=== PATIENT | male | born 1975 | race Caucasian/White ===

== ENCOUNTER 2020-06-14 12:55 | Outpatient (REF) | payer MEDICARE, MEDICAID, SELFPAY | END 2020-06-14 12:56 | disposition home or self-care (01) | LOC: HO.HMGCLDS 12:55 | PROVIDERS: PCP Internal Medicine; Visit Provider Internal Medicine | DX: Z20.828 Contact with and (suspected) exposure to other viral communicable diseases (principal) | CPT/HCPCS: U0003 ==

== ENCOUNTER 2020-06-23 16:39 | Outpatient (REF) | payer MEDICARE, MEDICAID, SELFPAY | END 2020-06-23 16:40 | disposition home or self-care (01) | LOC: HO.LNP 16:39 | PROVIDERS: Visit Provider Nurse Practitioner Family | DX: Z20.828 Contact with and (suspected) exposure to other viral communicable diseases (principal); R52 Pain, unspecified | CPT/HCPCS: U0003 ==

== ENCOUNTER 2020-09-29 09:25 | Outpatient (REF) | payer MEDICARE, MEDICAID, SELFPAY ==
--- NOTE | ~2020-09-29 | US_ITS ---
EXAMINATION: US RETROPERITONEAL LIMITED (RENAL ONLY) CLINICAL INFORMATION: Nephrolithiasis. COMPARISON: Renal ultrasound 03/30/2020. KUB 03/30/2020 and 03/22/2020. CT abdomen and pelvis 03/24/2020. Ultrasound abdomen complete 12/30/2013. TECHNIQUE: Real-time imaging of the kidneys. FINDINGS: RIGHT KIDNEY: 11.7 x 5.8 x 5.6 cm (SAG x AP x TRV). The kidney is normal in size, contour, and echogenicity. Renal cortical thickness is normal. No calculi or focal parenchymal lesions. No hydronephrosis. LEFT KIDNEY: 10.7 x 6.4 x 5.2 cm (SAG x AP x TRV). The kidney is normal in size, contour, and echogenicity. Renal cortical thickness is normal. No calculi or focal parenchymal lesions. No hydronephrosis. OTHER: The visualized right hepatic lobe demonstrates diffuse increased echotexture. US/US renal BI IMPRESSION: 1. No significant renal abnormality. 2. Possible hepatic steatosis.
== END 2020-09-29 09:26 | disposition home or self-care (01) ==
LOC: HO.US 09:25
PROVIDERS: Visit Provider Urology
DX: N20.0 Calculus of kidney (principal)
CPT/HCPCS: 76775

== ENCOUNTER → 2020-10-06 10:44 | Outpatient (BNVA) | payer MEDICARE, MEDICAID, SELFPAY | PROVIDERS: PCP Internal Medicine; Visit Provider Urology | DX: Z13.89 Encounter for screening for other disorder (principal) | CPT/HCPCS: Q3014 ==

== ENCOUNTER 2020-12-26 03:39 | Emergency (ER) | payer MEDICARE, MEDICAID, SELFPAY ==
--- NOTE | ~2020-12-26 | CT_ITS ---
EXAMINATION: CT ABDOMEN AND PELVIS WITHOUT CONTRAST CLINICAL INFORMATION: Right flank pain, history of kidney stones COMPARISON: 03/24/2020 TECHNIQUE: Multidetector volumetric imaging was performed from the superior aspect of the liver through the pubic symphysis. Sagittal and coronal reformatted images were obtained on the technologist's workstation. This CT examination was performed using dose optimization techniques as appropriate, variously including the following: *Automated exposure control *Adjustment of mA and/or kV according to patient size (this includes techniques or standardized protocols for targeted exams where dose is matched to indication/reason for exam; i.e. extremities or head) *Use of iterative reconstruction technique DLP: 94 9 mGy-cm FINDINGS: LUNG BASES: The visualized lung bases are unremarkable. LIVER, GALLBLADDER, AND BILIARY TREE: The liver demonstrates hypoattenuation consistent with steatosis. No biliary ductal dilatation is present. The gallbladder is unremarkable with no evidence of radiopaque gallstones, gallbladder wall thickening, or obvious pericholecystic inflammatory changes. PANCREAS: Unremarkable. SPLEEN: Unremarkable. ADRENAL GLANDS: Unremarkable. KIDNEYS AND URETERS: The kidneys are normal in size, shape, and attenuation. A few punctate right renal calculi are noted. No hydronephrosis, hydroureter, or obstructing calculi seen. BLADDER: Unremarkable. GASTROINTESTINAL TRACT: The small and large bowel are unremarkable. No free fluid or free air is seen. ABDOMINAL WALL: No significant hernia is appreciated. LYMPH NODES: Normal. VASCULAR: Unremarkable. PELVIC VISCERA: Unremarkable. OSSEOUS STRUCTURES: Disc spacers are present at L4-L5 and L5-S1. CT/CT abdomen pelvis wo con IMPRESSION: No acute findings identified in the abdomen/pelvis. Few punctate right renal calculi without hydronephrosis.
[2020-12-26 04:15] VITALS: BP 132/94; PULSE 85; RESP 20; TEMP 36.6; O2SAT 99; BMI 32.1
[2020-12-26 04:46] LABS: Basophils Percent Auto 0.3 % (0-2); Eosinophils Absolute Auto 0.2 X10*3/uL (0.0-0.4); Eosinophils Percent Auto 1.9 % (0-4); Hematocrit 44.2 % (42-52); Hemoglobin 14.7 g/dl (14.0-18.0); Imm Gran Abs Auto 0.03 X10*3/uL (0.00-0.03); Imm Gran Pct Auto 0.3 % (0.0-0.4); Lymphocytes Absolute Auto 4.2 X10*3/uL (1.2-4.9); Lymphocytes Percent Auto 40.4 % (20-40); MANUAL DIFF FLAG NO; Mean Corpuscular HGB Conc 33.3 g/dl (31.0-36.0); Mean Corpuscular Hemoglobin 28.7 pg (27.0-33.0); Mean Corpuscular Volume 86.2 fL (80-98); Mean Platelet Volume 9.6 fL (9.4-12.4); Monocytes Absolute Auto 0.7 X10*3/uL (0.1-1.2); Monocytes Percent Auto 6.4 % (2-11); Neutrophils Absolute Auto 5.3 X10*3/uL (2.0-8.3); Neutrophils Percent Auto 50.7 % (45-73); Platelet Count 289 X10*3/uL (160-400); Red Blood Count 5.13 X10*6/uL (4.60-5.80); Red Cell Distribution Width 12.8 % (11.0-16.0); White Blood Count 10.4 X10*3/uL (4.8-10.8)
[2020-12-26 04:50] LABS: Glucose Urine UA NEG (NEG); Leukocyte Esterase Urine NEG (NEG); Nitrite Urine NEG (NEG); Specific Gravity - Urine >= 1.030 (1.005-1.025); Urine Blood NEG (NEG); Urine Ketones NEG (NEG); Urine Protein NEG (NEG-TRACE)
[2020-12-26 04:51] LABS: Appearance Urine CLEAR; Color Urine YELLOW
--- NOTE | 2020-12-26 04:52 | ED_ITS ---
HPI - Abdominal Pain General Chief Complaint: Abdominal Pain Stated Complaint: right side abdominal pain Time Seen by Provider: 12/26/20 04:38 Source: patient Mode of arrival: ambulatory Limitations: no limitations History of Present Illness HPI narrative: Patient comes to emergency room complaining of right flank pain. Patient states he woke up in the morning complaining of sharp pain in the right flank traveling towards the right lower quadrant. Patient states earlier this year he had left-sided kidney stones and the pain feels similar. Patient complaining of nausea, no vomiting or diarrhea. MD elicited complaint: flank pain Related Data Home Medications Medication Instructions Recorded Confirmed ibuprofen 600 mg tablet mg PO 06/23/20 ketorolac 10 mg tablet 10 mg PO Q6H PRN 06/23/20 methocarbamol 500 mg tablet 500 mg PO TID 06/23/20 mupirocin 2 % topical ointment TOPICAL BID 06/23/20 omeprazole 40 mg capsule,delayed 40 mg PO DAILY 06/23/20 release oxycodone-acetaminophen 5 mg-325 1 tab PO Q6H PRN 06/23/20 mg tablet potassium citrate 10 mEq (1,080 20 meq PO BID 06/23/20 mg) tablet,extended release simvastatin 20 mg tablet 20 mg PO BEDTIME 06/23/20 tamsulosin 0.4 mg capsule 0.4 mg PO DAILY 06/23/20 tramadol 50 mg tablet 50 mg PO Q6H PRN 06/23/20 Previous Rx's Medication Instructions Recorded ketorolac 10 mg PO TID PRN 5 Days #7 tab 12/26/20 Allergies Allergy/AdvReac Type Severity Reaction Status Date / Time seafood Allergy Unknown Verified 12/26/20 04:21 From VICODIN Allergy Unknown RASH Uncoded 04/28/20 16:27 Review of Systems Review of Systems Constitutional : No Weight loss, No Fever, No Chills, No Night Sweats, No Fatigue, No Malaise ENT/Mouth : No Hearing loss, No Ear Pain, No Nasal Congestion, No Sinus Pain, No Hoarseness, No sore throat, No Rhinorrhea, No Swallowing Difficulty Eyes: No Eye Pain, No Swelling, No Redness, No Foreign Body, No Discharge, No Vision Changes Cardiovascular : No Chest Pain, No SOB, No Dyspnea on Exertion, No Orthopnea, No Edema, No Palpitations Respiratory : No Cough, No Sputum, No Wheezing, No Smoke Exposure, No Dyspnea Gastrointestinal : No Nausea, No Vomiting, No Diarrhea, No Constipation, right- sided flank pain radiating towards the right lower quadrant, No Hematochezia, No Melena Genitourinary : no irregular bleeding, No Dysuria, No Urinary Frequency, No Hematuria, No Urinary Incontinence, No Urgency, No Flank Pain, No Urinary Flow Changes, No Hesitancy Musculoskeletal : No joint pain, No Myalgias, No Joint Swelling Skin : No Skin Lesions, No rash Neuro : No Weakness, No Numbness, No Paresthesias, No Loss of Consciousness, No Dizziness, No Headache Psych : No Anxiety/Panic, No Depression, No SI/HI/AH/VH, No Social Issues, Heme/Lymph: No Bruising, No Bleeding,No Lymphadenopathy Endocrine : No Polyuria, No Polydipsia, No Temperature Intolerance Physical Exam Vital Signs: Vital Signs: Last Vital Signs Temp 97.8 F 12/26/20 04:15 Pulse 76 12/26/20 06:49 Resp 16 12/26/20 06:49 BP 116/77 12/26/20 06:49 Pulse Ox 97 12/26/20 06:49 Body Mass Index 32.1 Appearance: Alert. Oriented X3. No acute distress. Eyes: Pupils equal, round and reactive to light. ENT: Pharynx normal. Neck: Normal inspection. Neck supple. No lymph nodes noted. No crepitus CVS: Normal heart rate and rhythm. Pulses normal. Normal S1 and S2 Respiratory: No respiratory distress. Breath sounds normal. No Wheezing. No rales Abdomen: Soft and nontender. No rigidity. No distention. Back: Positive CVA tenderness in the right side Skin: Skin warm and dry. Normal skin color. Normal skin turgor. Extremities: No lower extremity edema. No lower extremity edema. No Lacerations. No Rash Neuro: Oriented X 3. No motor deficit. No sensory deficit. Moving all extermities. No slurred speech. Course Course Course Narrative: I discussed with the patient that he does not have kidney stones, CT scan unremarkable. Patient instructed to follow-up with his primary care physician. Patient likely having musculoskeletal pain. MDM - Abdominal Pain Lab Data Result diagrams: 12/26/20 04:40 12/26/20 04:40 Labs: Lab Results 12/26/20 12/26/20 12/26/20 Range/Units 04:40 04:40 04:40 WBC 10.4 (4.8-10.8) X10*3/uL RBC 5.13 (4.60-5.80) X10*6/uL Hgb 14.7 (14.0-18.0) g/dl Hct 44.2 (42-52) % MCV 86.2 (80-98) fL MCH 28.7 (27.0-33.0) pg MCHC 33.3 (31.0-36.0) g/dl RDW 12.8 (11.0-16.0) % Plt Count 289 (160-400) X10*3/uL MPV 9.6 (9.4-12.4) fL Immature Gran % (Auto) 0.3 (0.0-0.4) % Neut % (Auto) 50.7 (45-73) % Lymph % (Auto) 40.4 H (20-40) % Barber % (Auto) 6.4 (2-11) % Eos % (Auto) 1.9 (0-4) % Baso % (Auto) 0.3 (0-2) % Lymph # (Auto) 4.2 (1.2-4.9) X10*3/uL Barber # (Auto) 0.7 (0.1-1.2) X10*3/uL Eos # (Auto) 0.2 (0.0-0.4) X10*3/uL Baso # (Auto) 0.0 (0.0-0.2) X10*3/uL Abs Immat Gran (auto) 0.03 (0.00-0.03) X10*3/uL Absolute Neuts (auto) 5.3 (2.0-8.3) X10*3/uL Absolute Nucleated RBC 0.000 (0.0-0.012) X10*3/uL Nucleated RBC % (auto) 0.0 (0.0-0.2) /100WBC Hold Blue Top SEE NOTE Sodium 140 (135-145) mmol/L Potassium 4.4 (3.3-5.1) mmol/L Chloride 105 (96-108) mmol/L Carbon Dioxide 24 (22-29) mmol/L Anion Gap 15 (12-20) BUN 19 H (9-16) mg/dL Creatinine 1.07 (0.5-1.4) mg/dL Estim Creat Clear Calc 112.6 Estimated GFR > 60 Random Glucose 129 H (60-115) mg/dL Calcium 9.4 (8.4-10.2) mg/dL Total Bilirubin 0.4 (0.0-1.0) mg/dL AST 30 (5-37) U/L ALT 55 H (0-40) U/L Alkaline Phosphatase 83 (39-117) U/L Total Protein 7.4 (6.5-8.0) g/dL Albumin 4.7 (3.5-5.0) g/dL Urine Color Urine Appearance Urine pH (5.0-8.0) Ur Specific Driscoll (1.005-1.025) Urine Protein (NEG-TRACE) MG/DL Urine Glucose (UA) (NEG) MG/DL Urine Ketones (NEG) MG/DL Urine Blood (NEG) Urine Nitrite (NEG) Ur Leukocyte Esterase (NEG) 12/26/20 Range/Units 04:40 WBC (4.8-10.8) X10*3/uL RBC (4.60-5.80) X10*6/uL Hgb (14.0-18.0) g/dl Hct (42-52) % MCV (80-98) fL MCH (27.0-33.0) pg MCHC (31.0-36.0) g/dl RDW (11.0-16.0) % Plt Count (160-400) X10*3/uL MPV (9.4-12.4) fL Immature Gran % (Auto) (0.0-0.4) % Neut % (Auto) (45-73) % Lymph % (Auto) (20-40) % Barber % (Auto) (2-11) % Eos % (Auto) (0-4) % Baso % (Auto) (0-2) % Lymph # (Auto) (1.2-4.9) X10*3/uL Barber # (Auto) (0.1-1.2) X10*3/uL Eos # (Auto) (0.0-0.4) X10*3/uL Baso # (Auto) (0.0-0.2) X10*3/uL Abs Immat Gran (auto) (0.00-0.03) X10*3/uL Absolute Neuts (auto) (2.0-8.3) X10*3/uL Absolute Nucleated RBC (0.0-0.012) X10*3/uL Nucleated RBC % (auto) (0.0-0.2) /100WBC Hold Blue Top Sodium (135-145) mmol/L Potassium (3.3-5.1) mmol/L Chloride (96-108) mmol/L Carbon Dioxide (22-29) mmol/L Anion Gap (12-20) BUN (9-16) mg/dL Creatinine (0.5-1.4) mg/dL Estim Creat Clear Calc Estimated GFR Random Glucose (60-115) mg/dL Calcium (8.4-10.2) mg/dL Total Bilirubin (0.0-1.0) mg/dL AST (5-37) U/L ALT (0-40) U/L Alkaline Phosphatase (39-117) U/L Total Protein (6.5-8.0) g/dL Albumin (3.5-5.0) g/dL Urine Color YELLOW Urine Appearance CLEAR Urine pH 6.0 (5.0-8.0) Ur Specific Driscoll >= 1.030 H (1.005-1.025) Urine Protein NEG (NEG-TRACE) MG/DL Urine Glucose (UA) NEG (NEG) MG/DL Urine Ketones NEG (NEG) MG/DL Urine Blood NEG (NEG) Urine Nitrite NEG (NEG) Ur Leukocyte Esterase NEG (NEG) Imaging Data CT scan - abdomen: Radiologist's impression: FINDINGS: LUNG BASES: The visualized lung bases are unremarkable. LIVER, GALLBLADDER, AND BILIARY TREE: The liver demonstrates hypoattenuation consistent with steatosis. No biliary ductal dilatation is present. The gallbladder is unremarkable with no evidence of radiopaque gallstones, gallbladder wall thickening, or obvious pericholecystic inflammatory changes. PANCREAS: Unremarkable. SPLEEN: Unremarkable. ADRENAL GLANDS: Unremarkable. KIDNEYS AND URETERS: The kidneys are normal in size, shape, and attenuation. A few punctate right renal calculi are noted. No hydronephrosis, hydroureter, or obstructing calculi seen. BLADDER: Unremarkable. GASTROINTESTINAL TRACT: The small and large bowel are unremarkable. No free fluid or free air is seen. ABDOMINAL WALL: No significant hernia is appreciated. LYMPH NODES: Normal. VASCULAR: Unremarkable. PELVIC VISCERA: Unremarkable. OSSEOUS STRUCTURES: Disc spacers are present at L4-L5 and L5-S1. CT/CT abdomen pelvis wo con IMPRESSION: No acute findings identified in the abdomen/pelvis. Few punctate right renal calculi without hydronephrosis. Discharge Plan Discharge Clinical Impression: Acute flank pain Patient Disposition: Home, Self-Care Instructions: Flank Pain (ED) Additional Instructions: Please follow-up with your primary care physician tomorrow. If you have any worsening or new symptoms, please return to the emergency room or call 911 Prescriptions: New ketorolac 10 mg tablet 10 mg PO TID PRN (Reason: pain) 5 Days Qty: 7 RF: 0 No Action mupirocin 2 % ointment topical BID RF: 0 simvastatin 20 mg tablet 20 mg PO BEDTIME RF: 0 ibuprofen 600 mg tablet PO RF: 0 omeprazole 40 mg capsule,delayed release(DR/EC) 40 mg PO DAILY RF: 0 methocarbamol 500 mg tablet 500 mg PO TID RF: 0 potassium citrate 10 mEq (1,080 mg) tablet extended release 20 meq PO BID RF: 0 ketorolac 10 mg tablet 10 mg PO Q6H PRN (Reason: pain) RF: 0 tramadol 50 mg tablet 50 mg PO Q6H PRNRF: 0 tamsulosin 0.4 mg capsule 0.4 mg PO DAILY RF: 0 oxycodone-acetaminophen 5-325 mg tablet 1 tab PO Q6H PRN (Reason: pain) RF: 0 PMFSH Past Medical History Medical History Chronic lower back pain Kidney calculi Surgical History Hx of appendectomy Social History Social History Advance Directives: No Advance Directives Information Provided: No
[2020-12-26] MEDS: Ketorolac Tromethamine 30 MG/ML VIAL IVPUSH (04:59)
[2020-12-26] MEDS: ondansetron HCL 4 MG/2 ML VIAL IVPUSH (04:59)
[2020-12-26 05:09] LABS: Alanine Aminotransferase 55 U/L (0-40); Albumin Level 4.7 g/dL (3.5-5.0); Alkaline Phosphatase 83 U/L (39-117); Anion Gap 15 (12-20); Aspartate Amino Transferase 30 U/L (5-37); Bilirubin Total 0.4 mg/dL (0.0-1.0); Blood Urea Nitrogen 19 mg/dL (9-16); Calcium 9.4 mg/dL (8.4-10.2); Carbon Dioxide 24 mmol/L (22-29); Chloride 105 mmol/L (96-108); Creatinine Clr Calc Pharmacy 112.6; Estimated Glomerular Filt Rate > 60; Glucose Random 129 mg/dL (60-115); Potassium 4.4 mmol/L (3.3-5.1); Sodium 140 mmol/L (135-145); Total Protein 7.4 g/dL (6.5-8.0)
[2020-12-26 06:49] VITALS: BP 116/77; PULSE 76; RESP 16; O2SAT 97
--- NOTE | 2020-12-26 06:49 | PC.NURSE ---
PT REPORTS PAIN HAS IMPROVED, NOW A 4/10. PT STILL FEELING NAUSEOUS.
[2020-12-26 07:22] VITALS: BP 101/62; PULSE 74; RESP 18; O2SAT 98
== END 2020-12-26 07:31 | disposition home or self-care (01) ==
PROVIDERS: Emergency Provider Emergency Medicine; PCP Internal Medicine
DX: R10.9 Unspecified abdominal pain (principal); R11.0 Nausea; N20.0 Calculus of kidney; Z87.442 Personal history of urinary calculi
CPT/HCPCS: 36415; 74176; 80053; 81003; 85025; 96374; 96375; 99284; J1885; J2405

== ENCOUNTER 2021-06-20 13:06 | Emergency (ER) | payer MEDICARE, MEDICAID, SELFPAY | END 2021-06-20 15:13 | disposition left against medical advice (07) | PROVIDERS: Emergency Provider Emergency Medicine; PCP Internal Medicine | DX: R10.9 Unspecified abdominal pain (principal); R31.9 Hematuria, unspecified ==

== ENCOUNTER 2021-10-30 13:53 | Outpatient (REF) | payer MEDICARE, MEDICAID, SELFPAY ==
--- NOTE | ~2021-10-30 | US_ITS ---
EXAMINATION: US RETROPERITONEAL LIMITED (RENAL ONLY) CLINICAL INFORMATION: Calculus of kidney. COMPARISON: CT abdomen and pelvis 12/26/2020. Renal ultrasound 09/29/2020 and 03/30/2020. X-ray abdomen KUB 03/30/2020. TECHNIQUE: Real-time imaging of the kidneys. FINDINGS: RIGHT KIDNEY: 11.5 x 5.8 x 6.2 cm (SAG x AP x TRV). The kidney is normal in size, contour, and echogenicity. Renal cortical thickness is normal. There are 2 x 2.3 mm echogenic densities in the midpole questionable for small stones. No focal parenchymal lesions or hydronephrosis. LEFT KIDNEY: 11.0 x 6.5 x 5.3 cm (SAG x AP x TRV). The kidney is normal in size, contour, and echogenicity. Renal cortical thickness is normal. There is a 4 mm stone in the upper pole. No focal parenchymal lesions or hydronephrosis. US/US renal BI IMPRESSION: Probable bilateral renal stones.
== END 2021-10-30 13:54 | disposition home or self-care (01) ==
LOC: HO.HMGCX 13:53
PROVIDERS: Visit Provider Urology
DX: N20.0 Calculus of kidney (principal)
CPT/HCPCS: 76775

== ENCOUNTER 2022-02-20 19:04 | Emergency (ER) | payer MEDICARE, MEDICAID, SELFPAY | END 2022-02-20 22:19 | disposition left against medical advice (07) | PROVIDERS: Emergency Provider Emergency Medicine | DX: N23 Unspecified renal colic (principal) ==

== ENCOUNTER → 2022-03-13 13:34 | Outpatient (BNVA) | payer MEDICARE, MEDICAID, SELFPAY | PROVIDERS: Visit Provider Urology | DX: N20.0 Calculus of kidney (principal) | CPT/HCPCS: Q3014 ==

== ENCOUNTER 2022-06-26 15:53 | Emergency (ER) | payer MEDICARE, MEDICAID, SELFPAY ==
--- NOTE | ~2022-06-26 | US_ITS ---
EXAMINATION: US ABDOMEN LIMITED CLINICAL INFORMATION: Right upper quadrant pain. COMPARISON: Ultrasound kidneys 10/30/2021, CT abdomen pelvis 12/27/2019 TECHNIQUE: Real-time imaging of the right upper quadrant limited to the gallbladder and bile ducts. FINDINGS: GALLBLADDER: The gallbladder is physiologically distended without evidence of stones, sludge, polyps, wall thickening or pericholecystic fluid. COMMON BILE DUCT: Normal in caliber measuring 0.2 cm in diameter. US/US abdomen limited IMPRESSION: Normal-appearing gallbladder.
[2022-06-26 18:52] VITALS: BP 149/100; PULSE 101; RESP 20; TEMP 36.7; O2SAT 96; BMI 32.0
--- NOTE | 2022-06-26 18:56 | ECG_ITS ---
Test Reason : ABDOMINAL PAIN Blood Pressure : / mmHG Vent. Rate : 108 BPM Atrial Rate : 108 BPM P-R Int : 126 ms QRS Dur : 080 ms QT Int : 332 ms P-R-T Axes : 028 005 024 degrees QTc Int : 444 ms Sinus tachycardia Otherwise normal ECG Heart rate has increased Referred By: Palmira Scott Electronically Signed By:MALISSA HER MD
--- NOTE | 2022-06-26 18:57 | ED.ABDPAIN ---
HPI - Abdominal Pain General Chief Complaint: Abdominal Pain <Palmira Scott MD - Last Filed: 06/26/22 18:58> Stated Complaint: Abdominal pain <Palmira Scott MD - Last Filed: 06/26/22 18:58> Time Seen by Provider: 06/26/22 21:32 <Palmira Scott MD - Last Filed: 06/26/22 18:58> Source: patient <MINGO Walsh - Last Filed: 06/26/22 22:56> Mode of arrival: ambulatory <MINGO Walsh - Last Filed: 06/26/22 22:56> Limitations: no limitations <MINGO Walsh - Last Filed: 06/26/22 22:56> History of Present Illness HPI narrative: 47 yo male with history of kidney stones, gastritis, GERD, a role bowel syndrome who presents to the ER for 2 and half days of right upper quadrant pain. She reports the pain is intermittent, comes and goes and radiates to his epigastric area. He has noticed that is worse with greasy foods. He also noticed that he has been more gassy and has cramping gaslike pains. He was intermittently nauseous yesterday but did not vomit. He did have 1 episode of loose stool today that was nonbloody. No fever or chills. No urinary symptoms. <MINGO Walsh - Last Filed: 06/26/22 22:56> MD elicited complaint: abdominal pain <MINGO Walsh - Last Filed: 06/26/22 22:56> Pertinent past history: gastritis <MINGO Walsh - Last Filed: 06/26/22 22:56> Onset (ago): day(s) (2) <MINGO Walsh - Last Filed: 06/26/22 22:56> Pain Consistency: intermittent <MINGO Walsh - Last Filed: 06/26/22 22:56> Location: RUQ <MINGO Walsh - Last Filed: 06/26/22 22:56> Severity: moderate <MINGO Walsh Last Filed: 06/26/22 22:56> Pain scale (0-10): 6 <MINGO Walsh - Last Filed: 06/26/22 22:56> Quality: cramping and aching <MINGO Walsh - Last Filed: 06/26/22 22:56> Radiation: epigastric <IMNGO Walsh - Last Filed: 06/26/22 22:56> Migration to: no migration <MINGO Walsh - Last Filed: 06/26/22 22:56> Exacerbating factors: eating <MINGO Walsh - Last Filed: 06/26/22 22:56> Relieving factors: nothing <MINGO Walsh - Last Filed: 06/26/22 22:56> Associated symptoms: nausea <MINGO Walsh - Last Filed: 06/26/22 22:56> Related Data Home Medications: Home Medications Medication Instructions Recorded Confirmed ibuprofen 600 mg tablet mg PO 06/23/20 ketorolac 10 mg tablet 10 mg PO Q6H PRN pain 06/23/20 methocarbamol 500 mg tablet 500 mg PO TID 06/23/20 mupirocin 2 % topical ointment topical BID 06/23/20 omeprazole 40 mg capsule,delayed 40 mg PO DAILY 06/23/20 release oxycodone-acetaminophen 5 mg-325 1 tab PO Q6H PRN pain 06/23/20 mg tablet simvastatin 20 mg tablet 20 mg PO BEDTIME 06/23/20 tramadol 50 mg tablet 50 mg PO Q6H PRN 06/23/20 Previous Rx's Medication Instructions Recorded ketorolac 10 mg tablet 10 mg PO TID PRN pain 5 days #7 12/26/20 tabs tamsulosin 0.4 mg capsule 0.4 mg PO DAILY 90 days #90 caps 06/29/21 potassium citrate 10 mEq (1,080 20 meq PO BID 90 days #360 tabs 03/13/22 mg) tablet,extended release <Palmira Scott MD - Last Filed: 06/26/22 18:58> Allergies/Adverse Reactions: Allergies Allergy/AdvReac Type Severity Reaction Status Date / Time seafood Allergy Unknown Verified 06/26/22 18:58 From VICODIN Allergy Unknown RASH Uncoded 04/28/20 16:27 <Palmira Scott MD - Last Filed: 06/26/22 18:58> [facility] Past Medical History Medical History: Medical History Chronic lower back pain Kidney calculi <Palmira Scott MD - Last Filed: 06/26/22 18:58> Surgical History: Surgical History Hx of appendectomy <Palmira Scott MD - Last Filed: 06/26/22 18:58> Social History Social History: Social History Advance Directives: No Advance Directives Information Provided: No <Palmira Scott MD - Last Filed: 06/26/22 18:58> Physical Exam ED Vital Signs: Vital Signs - 24 hr 06/26/22 18:52 06/26/22 20:51 06/26/22 21:40 Temperature 98.1 F 98.4 F 98.6 F Pulse Rate 101 H 110 H 117 H Respiratory Rate 20 18 16 Blood Pressure 149/100 H 162/103 H 147/107 H Pulse Oximetry 96 95 98 Oxygen Delivery Method Room Air Room Air Room Air 06/26/22 22:18 Temperature 98.2 F Pulse Rate 105 H Respiratory Rate 18 Blood Pressure 138/98 H Pulse Oximetry 98 Oxygen Delivery Method Room Air BMI result Body Mass Index 32.0 <Palmira Scott MD - Last Filed: 06/26/22 18:58> Vital Signs - 24 hr 06/26/22 18:52 06/26/22 20:51 06/26/22 21:40 Temperature 98.1 F 98.4 F 98.6 F Pulse Rate 101 H 110 H 117 H Respiratory Rate 20 18 16 Blood Pressure 149/100 H 162/103 H 147/107 H Pulse Oximetry 96 95 98 Oxygen Delivery Method Room Air Room Air Room Air 06/26/22 22:18 Temperature 98.2 F Pulse Rate 105 H Respiratory Rate 18 Blood Pressure 138/98 H Pulse Oximetry 98 Oxygen Delivery Method Room Air BMI result Body Mass Index 32.0 <MINGO Walsh - Last Filed: 06/26/22 22:56> Course Reevaluation(s) Reevaluation #1: 47-year-old male came in for 3 days of upper abdominal pain, pain is mostly in the epigastric area, worsening by food and no relieving factor, no nausea or vomiting. Patient takes omeprazole for non GERD disease. Lab/EKG/gallbladder ultrasound was ordered from triage. <Palmira Scott MD - Last Filed: 06/26/22 18:58> Time: 18:57 <Palmira Scott MD - Last Filed: 06/26/22 18:58> Reevaluation #2: Patient has mild elevation in his AST ALT but a normal alk-phos, normal bilirubins. Normal lipase. Ultrasound of his abdomen is showing a unremarkable gallbladder. His pain is located in the right upper quadrant epigastric area. Could be combination of possible biliary colic versus gastritis. Will give GI cocktail. <MINGO Walsh - Last Filed: 06/26/22 22:56> Time: 22:00 <MINGO Walsh - Last Filed: 06/26/22 22:56> Reevaluation #3: Pain improved. Stable for d/c home with dietary modifications, GI follow up. continue PPI <MINGO Walsh - Last Filed: 06/26/22 22:56> Medications Administered Discontinued Medications Generic Name Dose Route Start Last Admin Trade Name Freq PRN Reason Stop Dose Admin Acetaminophen 975 mg 06/26/22 22:14 06/26/22 22:35 Acetaminophen 325 Mg Tablet PO 06/26/22 22:15 975 mg ONCE ONE Administration Al Hydroxide/Mg Hydroxide 30 ml 06/26/22 21:36 06/26/22 22:36 Magnesium Hydrox/Alum Hydrox 30 Ml Oral.Susp PO 06/26/22 21:37 30 ml ONCE ONE Administration Belladonna Alkaloids/Phenobarbital 10 ml 06/26/22 21:36 06/26/22 22:36 Phenobarb/Hyoscy/Atropine/Scop 10 Ml Elixir PO 06/26/22 21:37 10 ml ONCE ONE Administration Lidocaine HCl 15 ml 06/26/22 21:36 06/26/22 22:36 Lidocaine Hcl Viscous 2 % 15 Ml Solution MUCOUS MEM 06/26/22 21:37 15 ml ONCE ONE Administration Simethicone 160 mg 06/26/22 21:36 06/26/22 22:35 Simethicone 80 Mg Tab.Chew PO 06/26/22 21:37 160 mg ONCE ONE Administration <Palmira Scott MD - Last Filed: 06/26/22 18:58> Medications Administered Discontinued Medications Generic Name Dose Route Start Last Admin Trade Name Claudia PRN Reason Stop Dose Admin Acetaminophen 975 mg 06/26/22 22:14 06/26/22 22:35 Acetaminophen 325 Mg Tablet PO 06/26/22 22:15 975 mg ONCE ONE Administration Al Hydroxide/Mg Hydroxide 30 ml 06/26/22 21:36 06/26/22 22:36 Magnesium Hydrox/Alum Hydrox 30 Ml Oral.Susp PO 06/26/22 21:37 30 ml ONCE ONE Administration Belladonna Alkaloids/Phenobarbital 10 ml 06/26/22 21:36 06/26/22 22:36 Phenobarb/Hyoscy/Atropine/Scop 10 Ml Elixir PO 06/26/22 21:37 10 ml ONCE ONE Administration Lidocaine HCl 15 ml 06/26/22 21:36 06/26/22 22:36 Lidocaine Hcl Viscous 2 % 15 Ml Solution MUCOUS MEM 06/26/22 21:37 15 ml ONCE ONE Administration Simethicone 160 mg 06/26/22 21:36 06/26/22 22:35 Simethicone 80 Mg Tab.Chew PO 06/26/22 21:37 160 mg ONCE ONE Administration <MINGO Walsh - Last Filed: 06/26/22 22:56> MDM - Abdominal Pain Lab Data Result diagrams: : 06/26/22 20:24 06/26/22 20:24 <Palmira Scott MD - Last Filed: 06/26/22 18:58> Labs: Lab Results 06/26/22 06/26/22 06/26/22 Range/Units 20:24 20:24 20:24 WBC 11.6 H (4.8-10.8) X10*3/uL RBC 5.58 (4.60-5.80) X10*6/uL Hgb 16.2 (14.0-18.0) g/dl Hct 48.2 (42.0-52.0) % MCV 86.4 (80.0-98.0) fL MCH 29.0 (27.0-33.0) pg MCHC 33.6 (31.0-36.0) g/dl RDW 12.6 (11.0-16.0) % Plt Count 329 (160-400) X10*3/uL MPV 9.5 (9.4-12.4) fL Immature Gran % (Auto) 0.4 (0.0-0.4) % Neut % (Auto) 66.9 (45-73) % Lymph % (Auto) 26.4 (20-40) % [place] % (Auto) 5.1 (2-11) % Eos % (Auto) 0.9 (0-4) % Baso % (Auto) 0.3 (0-2) % Lymph # (Auto) 3.1 (1.2-4.9) X10*3/uL [place] # (Auto) 0.6 (0.1-1.2) X10*3/uL Eos # (Auto) 0.1 (0.0-0.4) X10*3/uL Baso # (Auto) 0.0 (0.0-0.2) X10*3/uL Abs Immat Gran (auto) 0.05 H (0.00-0.03) X10*3/uL Absolute Neuts (auto) 7.8 (2.0-8.3) x10*3/uL Absolute Nucleated RBC 0.000 (0.0-0.012) X10*3/uL Nucleated RBC % (auto) 0.0 (0.0-0.2) /100WBC Sodium 142 (135-145) mmol/L Potassium 4.2 (3.3-5.1) mmol/L Chloride 103 (96-108) mmol/L Carbon Dioxide 27 (22-29) mmol/L Anion Gap 16 (12-20) BUN 13 (9-16) mg/dL Creatinine 1.11 (0.5-1.4) mg/dL Estim Creat Clear Calc 106.2 Estimated GFR > 60 Random Glucose 104 (60-115) mg/dL Calcium 10.2 D (8.4-10.2) mg/dL Total Bilirubin 0.3 (0.0-1.0) mg/dL Direct Bilirubin 0.2 (0.0-0.5) mg/dL AST 43 H D (5-37) U/L ALT 83 H (0-40) U/L Alkaline Phosphatase 100 D (39-117) U/L Troponin I High Sens < 3.5 (<3.5-35.0) ng/L Total Protein 8.3 H (6.5-8.0) g/dL Albumin 5.2 H (3.5-5.0) g/dL Lipase 16 (8-78) U/L Urine Color Urine Appearance Urine pH (5.0-9.0) Ur Specific [place] (1.005-1.025) Urine Protein (Neg-Trace) mg/dL Urine Glucose (UA) (Negative) mg/dL Urine Ketones (Negative) mg/dL Urine Blood (Negative) Urine Nitrite (Negative) Ur Leukocyte Esterase (Negative) 06/26/22 Range/Units 22:01 WBC (4.8-10.8) X10*3/uL RBC (4.60-5.80) X10*6/uL Hgb (14.0-18.0) g/dl Hct (42.0-52.0) % MCV (80.0-98.0) fL MCH (27.0-33.0) pg MCHC (31.0-36.0) g/dl RDW (11.0-16.0) % Plt Count (160-400) X10*3/uL MPV (9.4-12.4) fL Immature Gran % (Auto) (0.0-0.4) % Neut % (Auto) (45-73) % Lymph % (Auto) (20-40) % [place] % (Auto) (2-11) % Eos % (Auto) (0-4) % Baso % (Auto) (0-2) % Lymph # (Auto) (1.2-4.9) X10*3/uL [place] # (Auto) (0.1-1.2) X10*3/uL Eos # (Auto) (0.0-0.4) X10*3/uL Baso # (Auto) (0.0-0.2) X10*3/uL Abs Immat Gran (auto) (0.00-0.03) X10*3/uL Absolute Neuts (auto) (2.0-8.3) x10*3/uL Absolute Nucleated RBC (0.0-0.012) X10*3/uL Nucleated RBC % (auto) (0.0-0.2) /100WBC Sodium (135-145) mmol/L Potassium (3.3-5.1) mmol/L Chloride (96-108) mmol/L Carbon Dioxide (22-29) mmol/L Anion Gap (12-20) BUN (9-16) mg/dL Creatinine (0.5-1.4) mg/dL Estim Creat Clear Calc Estimated GFR Random Glucose (60-115) mg/dL Calcium (8.4-10.2) mg/dL Total Bilirubin (0.0-1.0) mg/dL Direct Bilirubin (0.0-0.5) mg/dL AST (5-37) U/L ALT (0-40) U/L Alkaline Phosphatase (39-117) U/L Troponin I High Sens (<3.5-35.0) ng/L Total Protein (6.5-8.0) g/dL Albumin (3.5-5.0) g/dL Lipase (8-78) U/L Urine Color Yellow Urine Appearance Clear Urine pH 5.5 (5.0-9.0) Ur Specific [place] 1.020 (1.005-1.025) Urine Protein Negative (Neg-Trace) mg/dL Urine Glucose (UA) Negative (Negative) mg/dL Urine Ketones Negative (Negative) mg/dL Urine Blood Negative (Negative) Urine Nitrite Negative (Negative) Ur Leukocyte Esterase Negative (Negative) <Palmira Scott MD - Last Filed: 06/26/22 18:58> Lab Results 06/26/22 06/26/22 06/26/22 Range/Units 20:24 20:24 20:24 WBC 11.6 H (4.8-10.8) X10*3/uL RBC 5.58 (4.60-5.80) X10*6/uL Hgb 16.2 (14.0-18.0) g/dl Hct 48.2 (42.0-52.0) % MCV 86.4 (80.0-98.0) fL MCH 29.0 (27.0-33.0) pg MCHC 33.6 (31.0-36.0) g/dl RDW 12.6 (11.0-16.0) % Plt Count 329 (160-400) X10*3/uL MPV 9.5 (9.4-12.4) fL Immature Gran % (Auto) 0.4 (0.0-0.4) % Neut % (Auto) 66.9 (45-73) % Lymph % (Auto) 26.4 (20-40) % [place] % (Auto) 5.1 (2-11) % Eos % (Auto) 0.9 (0-4) % Baso % (Auto) 0.3 (0-2) % Lymph # (Auto) 3.1 (1.2-4.9) X10*3/uL [place] # (Auto) 0.6 (0.1-1.2) X10*3/uL Eos # (Auto) 0.1 (0.0-0.4) X10*3/uL Baso # (Auto) 0.0 (0.0-0.2) X10*3/uL Abs Immat Gran (auto) 0.05 H (0.00-0.03) X10*3/uL Absolute Neuts (auto) 7.8 (2.0-8.3) x10*3/uL Absolute Nucleated RBC 0.000 (0.0-0.012) X10*3/uL Nucleated RBC % (auto) 0.0 (0.0-0.2) /100WBC Sodium 142 (135-145) mmol/L Potassium 4.2 (3.3-5.1) mmol/L Chloride 103 (96-108) mmol/L Carbon Dioxide 27 (22-29) mmol/L Anion Gap 16 (12-20) BUN 13 (9-16) mg/dL Creatinine 1.11 (0.5-1.4) mg/dL Estim Creat Clear Calc 106.2 Estimated GFR > 60 Random Glucose 104 (60-115) mg/dL Calcium 10.2 D (8.4-10.2) mg/dL Total Bilirubin 0.3 (0.0-1.0) mg/dL Direct Bilirubin 0.2 (0.0-0.5) mg/dL AST 43 H D (5-37) U/L ALT 83 H (0-40) U/L Alkaline Phosphatase 100 D (39-117) U/L Troponin I High Sens < 3.5 (<3.5-35.0) ng/L Total Protein 8.3 H (6.5-8.0) g/dL Albumin 5.2 H (3.5-5.0) g/dL Lipase 16 (8-78) U/L Urine Color Urine Appearance Urine pH (5.0-9.0) Ur Specific [place] (1.005-1.025) Urine Protein (Neg-Trace) mg/dL Urine Glucose (UA) (Negative) mg/dL Urine Ketones (Negative) mg/dL Urine Blood (Negative) Urine Nitrite (Negative) Ur Leukocyte Esterase (Negative) 06/26/22 Range/Units 22:01 WBC (4.8-10.8) X10*3/uL RBC (4.60-5.80) X10*6/uL Hgb (14.0-18.0) g/dl Hct (42.0-52.0) % MCV (80.0-98.0) fL MCH (27.0-33.0) pg MCHC (31.0-36.0) g/dl RDW (11.0-16.0) % Plt Count (160-400) X10*3/uL MPV (9.4-12.4) fL Immature Gran % (Auto) (0.0-0.4) % Neut % (Auto) (45-73) % Lymph % (Auto) (20-40) % [place] % (Auto) (2-11) % Eos % (Auto) (0-4) % Baso % (Auto) (0-2) % Lymph # (Auto) (1.2-4.9) X10*3/uL [place] # (Auto) (0.1-1.2) X10*3/uL Eos # (Auto) (0.0-0.4) X10*3/uL Baso # (Auto) (0.0-0.2) X10*3/uL Abs Immat Gran (auto) (0.00-0.03) X10*3/uL Absolute Neuts (auto) (2.0-8.3) x10*3/uL Absolute Nucleated RBC (0.0-0.012) X10*3/uL Nucleated RBC % (auto) (0.0-0.2) /100WBC Sodium (135-145) mmol/L Potassium (3.3-5.1) mmol/L Chloride (96-108) mmol/L Carbon Dioxide (22-29) mmol/L Anion Gap (12-20) BUN (9-16) mg/dL Creatinine (0.5-1.4) mg/dL Estim Creat Clear Calc Estimated GFR Random Glucose (60-115) mg/dL Calcium (8.4-10.2) mg/dL Total Bilirubin (0.0-1.0) mg/dL Direct Bilirubin (0.0-0.5) mg/dL AST (5-37) U/L ALT (0-40) U/L Alkaline Phosphatase (39-117) U/L Troponin I High Sens (<3.5-35.0) ng/L Total Protein (6.5-8.0) g/dL Albumin (3.5-5.0) g/dL Lipase (8-78) U/L Urine Color Yellow Urine Appearance Clear Urine pH 5.5 (5.0-9.0) Ur Specific [place] 1.020 (1.005-1.025) Urine Protein Negative (Neg-Trace) mg/dL Urine Glucose (UA) Negative (Negative) mg/dL Urine Ketones Negative (Negative) mg/dL Urine Blood Negative (Negative) Urine Nitrite Negative (Negative) Ur Leukocyte Esterase Negative (Negative) <MINGO Walsh - Last Filed: 06/26/22 22:56> Discharge Plan Discharge Clinical Impression: Gastritis <Palmira Scott MD - Last Filed: 06/26/22 18:58> Patient Disposition: Home, Self-Care <Palmira Scott MD - Last Filed: 06/26/22 18:58> Instructions: Gastritis (ED), Diet for Stomach Ulcers and Gastritis (ED) <Palmira Scott MD - Last Filed: 06/26/22 18:58> Additional Instructions: Your lab workup today was unremarkable. Your pain is most likely due to gastritis which is and irritation and inflammation of your stomach lining. You also may be having spasms of your gallbladder. Your gallbladder ultrasound was normal today. no gallstones. Stick to a bland diet. Avoid greasy foods, foods high in acid, avoid alcohol and NSAID medications like Aleve, Motrin, Advil or ibuprofen. Follow up with your doctor as needed. Recommend over the counter Gas-X. Follow up with GI doctor if you symptoms persist despite dietary modifications and medication. If you develop new or worsening symptoms call 911 or come back to the ER for further evaluation. <Palmira Scott MD - Last Filed: 06/26/22 18:58> Prescriptions: No Action tamsulosin 0.4 mg capsule 0.4 mg PO DAILY 90 Days Qty: 90 0RF ketorolac 10 mg tablet 10 mg PO TID PRN (Reason: pain) 5 Days Qty: 7 0RF mupirocin 2 % ointment topical BID simvastatin 20 mg tablet 20 mg PO BEDTIME ibuprofen 600 mg tablet PO omeprazole 40 mg capsule,delayed release(DR/EC) 40 mg PO DAILY methocarbamol 500 mg tablet 500 mg PO TID ketorolac 10 mg tablet 10 mg PO Q6H PRN (Reason: pain) tramadol 50 mg tablet 50 mg PO Q6H PRN oxycodone-acetaminophen 5-325 mg tablet 1 tab PO Q6H PRN (Reason: pain) potassium citrate 10 mEq (1,080 mg) tablet extended release 20 meq PO BID 90 Days Qty: 360 1RF <Palmira Scott MD - Last Filed: 06/26/22 18:58> Referrals: [facility] [Provider Group] <Palmira Scott MD - Last Filed: 06/26/22 18:58>
[2022-06-26 20:35] LABS: MANUAL DIFF FLAG NO
[2022-06-26 20:42] LABS: Basophils Percent Auto 0.3 % (0-2); Eosinophils Absolute Auto 0.1 X10*3/uL (0.0-0.4); Eosinophils Percent Auto 0.9 % (0-4); Hematocrit 48.2 % (42.0-52.0); Hemoglobin 16.2 g/dl (14.0-18.0); Imm Gran Abs Auto 0.05 X10*3/uL (0.00-0.03); Imm Gran Pct Auto 0.4 % (0.0-0.4); Lymphocytes Absolute Auto 3.1 X10*3/uL (1.2-4.9); Lymphocytes Percent Auto 26.4 % (20-40); Mean Corpuscular HGB Conc 33.6 g/dl (31.0-36.0); Mean Corpuscular Volume 86.4 fL (80.0-98.0); Mean Platelet Volume 9.5 fL (9.4-12.4); Monocytes Absolute Auto 0.6 X10*3/uL (0.1-1.2); Monocytes Percent Auto 5.1 % (2-11); Neutrophils Absolute Auto 7.8 x10*3/uL (2.0-8.3); Neutrophils Percent Auto 66.9 % (45-73); Platelet Count 329 X10*3/uL (160-400); Red Blood Count 5.58 X10*6/uL (4.60-5.80); Red Cell Distribution Width 12.6 % (11.0-16.0); White Blood Count 11.6 X10*3/uL (4.8-10.8)
[2022-06-26 20:51] VITALS: BP 162/103; PULSE 110; RESP 18; TEMP 36.9; O2SAT 95
[2022-06-26 20:52] LABS: Alanine Aminotransferase 83 U/L (0-40); Albumin Level 5.2 g/dL (3.5-5.0); Alkaline Phosphatase 100 U/L (39-117); Anion Gap 16 (12-20); Aspartate Amino Transferase 43 U/L (5-37); Bilirubin Direct 0.2 mg/dL (0.0-0.5); Bilirubin Total 0.3 mg/dL (0.0-1.0); Blood Urea Nitrogen 13 mg/dL (9-16); Calcium 10.2 mg/dL (8.4-10.2); Carbon Dioxide 27 mmol/L (22-29); Chloride 103 mmol/L (96-108); Creatinine Clr Calc Pharmacy 106.2; Estimated Glomerular Filt Rate > 60; Glucose Random 104 mg/dL (60-115); Lipase 16 U/L (8-78); Potassium 4.2 mmol/L (3.3-5.1); Sodium 142 mmol/L (135-145); Total Protein 8.3 g/dL (6.5-8.0)
[2022-06-26 20:55] LABS: Troponin-I High Sensitivity < 3.5 ng/L (<3.5-35.0)
[2022-06-26 21:40] VITALS: BP 147/107; PULSE 117; RESP 16; TEMP 37; O2SAT 98
--- NOTE | 2022-06-26 21:50 | PC.NURSE ---
this pct assumed care of pt at this time ,vitals sign done pt got change into hospital attire ,pt was hooked up to monitoring analyst ,urine sample send to lab.
[2022-06-26 22:18] VITALS: BP 138/98; PULSE 105; RESP 18; TEMP 36.8; O2SAT 98
[2022-06-26 22:26] LABS: Appearance Urine Clear; Color Urine Yellow; Glucose Urine UA Negative (Negative); Leukocyte Esterase Urine Negative (Negative); Nitrite Urine Negative (Negative); PH 5.5 (5.0-9.0); Urine Blood Negative (Negative); Urine Ketones Negative (Negative); Urine Protein Negative (Neg-Trace)
[2022-06-26] MEDS: Acetaminophen 325 MG TABLET 975 MG PO (22:35)
[2022-06-26] MEDS: Simethicone 80 MG TAB.CHEW 160 MG PO (22:35)
[2022-06-26] MEDS: Magnesium Hydrox/Alum Hydrox 30 ML ORAL.SUSP PO (22:36)
[2022-06-26] MEDS: PHENobarb/Hyoscy/Atropine/Scop 10 ML ELIXIR PO (22:36)
[2022-06-26] MEDS: Lidocaine HCl Viscous 2 % 15 ML SOLUTION MUCOUS MEM (22:36)
[2022-06-26 23:01] VITALS: BP 142/91; PULSE 100; RESP 16; TEMP 36.7; O2SAT 98
== END 2022-06-26 23:05 | disposition home or self-care (01) ==
PROVIDERS: Emergency Medicine; Emergency Provider Internal Medicine
DX: K29.70 Gastritis, unspecified, without bleeding (principal); R10.11 Right upper quadrant pain; Z79.899 Other long term (current) drug therapy
CPT/HCPCS: 36415; 76705; 80048; 80076; 81003; 83690; 84484; 85025; 93005; 99284; 99285